=== PATIENT | male | born 1945 | race Caucasian/White ===

== ENCOUNTER 2023-11-16 13:33 | Emergency (ER) | payer OTHER ==
[~2023-11-16] VITALS: Ht 172.7 cm; Wt 109.0 kg
[2023-11-16 13:37] VITALS: O2SAT 99
[2023-11-16] MEDS: LIDOCAINE HCL 1% 20ML VIAL (Pyxis) INJ INFIL ONE (16:59)
[2023-11-16 19:07] VITALS: BP 144/77; PULSE 80; RESP 18; TEMP 97.8
== END 2023-11-16 19:11 | disposition home or self-care (01) ==
LOC: ER 13:33
DX: M25.522 Pain in left elbow (principal); E11.9 Type 2 diabetes mellitus without complications
CPT/HCPCS: 99284; 72170; 73030; 73060; 73070; 73090; 73560; 73590; 12001; J3490